=== PATIENT | female | born 1940 | race Caucasian/White ===

== ENCOUNTER → 2017-10-08 | Outpatient (CLI) | payer OTHER, MEDICARE | LOC: FIMAGING 14:54 | PROVIDERS: ATTEND Internal Medicine | DX: Z12.31 Encounter for screening mammogram for malignant neoplasm of breast (principal) | CPT/HCPCS: G0202 ==

== ENCOUNTER 2018-01-13 09:42 | Day surgery (SDC) | payer OTHER, MEDICARE ==
[2018-01-13] MEDS ORDERED: fentaNYL 100 MCG/2 ML INJ IVP ONE (09:46)
[2018-01-13] MEDS ORDERED: MIDAZOLAM 2 MG/2 ML VIAL IVP ONE (09:46)
[2018-01-13] MEDS ORDERED: ATROPINE SULFATE 1 MG/10 ML SYR IVP ONE (09:46)
[2018-01-13] MEDS ORDERED: NS 500 ML IV ONE (09:46)
--- NOTE | 2018-01-13 10:12 | CPEKG ---
Heart Rate: 101 RR Interval: 594 QRSD Interval: 74 QT Interval: 336 QTC Interval: 436 QRS [place]: 67 T Wave [place]: 49 EKG Severity - ABNORMAL ECG - EKG Impression: ATRIAL FIBRILLATION, V-RATE 81-117 EKG Impression: LOW VOLTAGE IN FRONTAL LEADS Electronically Signed By: Chuckie Hurtado 13-Jan-2018 16:05:28
[2018-01-13 10:30] LABS: INR 1.38 (0.83-1.16); PROTIME(PATIENT) 17.1 SEC (12.0-15.0)
[2018-01-13] MEDS ORDERED: PROPOFOL/EMULSION 500 MG/50 ML BOTTLE IV ONE (10:48)
--- NOTE | 2018-01-13 10:51 | PDANEPAE ---
ANE History of Present Illness 77 year old female w/ Atrial fibrillation presents for CV. ANE Past Medical History - Cardiovascular History Hx Hypertension: Yes Hx Arrhythmias: Yes Hx Chest Pain: No Hx Coronary Artery / Peripheral Vascular Disease: No Hx CHF / Valvular Disease: No Hx Palpitations: Yes Cardiovascular History Comment: Atrial fibrillation - Pulmonary History Hx COPD: No Hx Asthma/Reactive Airway Disease: No Hx Recent Upper Respiratory Infection: No Hx Oxygen in Use at Home: No Hx Sleep Apnea: No - Neurologic History Hx Cerebrovascular Accident: No Hx Seizures: No Hx Dementia: No Neurologic History Comment: Migraine headaches - Endocrine History Hx Diabetes: No Hypothyroid: No Hyperthyroid: No Obesity: no - Renal History Hx Renal Disorders: No - Liver History Hx Hepatic Disorders: No - Neurological & Psychiatric Hx Hx Neurological and Psychiatric Disorders: No - Congenital Disorder History Hx Congenital Disorders: No - GI History GERD: mild Hx Gastrointestinal Disorders: Yes Gastrointestinal History Comment: GERD but is status post Justin ANE Review of Systems Review of systems is: negative Review of Systems: - Exercise capacity Exercise capacity: >=4 METS ANE Patient History - Allergies Allergies/Adverse Reactions: amoxicillin Allergy (Verified 01/13/18 09:46) clindamycin Allergy (Verified 01/13/18 09:46) Penicillins Allergy (Verified 01/13/18 09:46) Sulfa (Sulfonamide Antibiotics) Allergy (Verified 01/13/18 09:46) - Home Medications Home medications: home medication list seen and reviewed Home Medications: Apixaban [Eliquis] 5 mg PO BID 01/13/18 [Last Taken 01/13/18] Calcium Carbonate [Tums 500MG (*)] 500 mg PO DAILY PRN 01/13/18 [Last Taken Unknown] Lisinopril [Zestril 10 mg (*)] 10 mg PO DAILY 01/13/18 [Last Taken 01/13/18] Metoprolol Succinate Xr [Toprol Xl 25 mg (*)] 25 mg PO HS 01/13/18 [Last Taken 01/12/18] Triamcinolone 0.5% [Triamcinolone 0.5% Cream (*)] 1 gonzalo TP BID 01/13/18 [Last Taken Unknown] - NPO status NPO Status: no food or drink >8 hours - Anes Hx Anes Hx: no prior problems - Smoking Hx Smoking Status: Never smoked Marijuana use: No - Family Anes Hx Family Anes Hx: neg - N/A ANE Labs/Vital Signs - Labs Result Diagrams: 01/13/18 10:10 - Vital Signs Vital Signs: reviewed preoperatively; see RN documention for details Height: 165.1 cm Weight: 67.585 kg ANE Physical Exam - Airway Neck exam: FROM Mallampati Score: Class 2 Mouth exam: normal dental/mouth exam - Pulmonary Pulmonary: no respiratory distress - Cardiovascular Cardiovascular: irregularly irregular - ASA Status ASA Status: III ANE Anesthesia Plan Anesthesia Plan: GA with mask Total IV Anesthesia: Yes
--- NOTE | 2018-01-13 11:04 | PDGENHP ---
History & Physical Chief Complaint: sob History of Present Illness: afib x 5 weeks sob see office form Pertinent Past, Social, Family History: see note Relevant Physical Exam: irreg irreg. neuro intact. no change Cardiorespiratory Assessment: ready for cv. all ? ans. refuses drew. knows risks and options . wishes to proceed.
--- NOTE | 2018-01-13 11:31 | CPEKG ---
Heart Rate: 55 RR Interval: 1091 P-R Interval: 192 QRSD Interval: 76 QT Interval: 444 QTC Interval: 425 P [place]: 54 QRS [place]: 45 T Wave [place]: 53 EKG Severity - OTHERWISE NORMAL ECG - EKG Impression: SINUS RHYTHM EKG Impression: LOW VOLTAGE IN FRONTAL LEADS Electronically Signed By: Chuckie Hurtado 13-Jan-2018 16:05:15
--- NOTE | 2018-01-13 11:58 | CPIP ---
[f rep st] INVASIVE CARDIAC PROCEDURE DIAGNOSIS: Atrial fibrillation. PROCEDURE: Cardioversion. INDICATIONS: The patient had a cardioversion done today because of atrial fibrillation. She has bee n on Eliquis for more than 6 weeks. She has never missed a dose and she refuses a transesophageal ec hocardiographic study because she has had major esophageal surgery. She understood the risk of stroke or higher without transesophageal echocardiogram, but she also unde rstands that being on the Eliquis for a long time helps lower her risk significantly, especially when she does not miss any doses and it has been more than 5 weeks. So, she wanted to proceed today without transesophageal echocardiogram. DESCRIPTION OF PROCEDURE: The patient received 360 watt seconds and converted from atrial fibrillati on to normal sinus rhythm with 1 shock. Anesthesia was present. The patient is totally awake and fi ne. There were no complications. CONDITION AT THE END OF STUDY: Excellent. The patient knows the importance of continuing her Eliquis. She knows there is a significant risk of stroke, and she is aware of that, and will follow very closely any neurologic changes, and if she sh ould develop any, to call 911 and come right back to the hospital. /[id number]/MODL
--- NOTE | 2018-01-13 12:33 | POSTANESTH ---
Post Anesthetic Evaluation Cardiovascular Status: Normal, Stable, Similar to Pre-Op Cond Respiratory Status: Normal, Stable, Similar to Pre-op Cond. Level of Consciousness/Mental Status: Can Participate in Eval, Alert and Oriented Pain Control: Adequate, Prn Tx Ordered Nausea/Vomiting Control: Adequate, Prn Tx Ordered Complications Possibly Related to Anesthesia: None Noted
== END 2018-01-13 12:55 | disposition home or self-care (01) ==
LOC: FCATH 09:42
PROVIDERS: ATTEND Internal Medicine
PROC: 5A2204Z Restoration of Cardiac Rhythm, Single (ICD-10-PCS; principal; 2018-01-13)
DX: I48.91 Unspecified atrial fibrillation (principal); I10 Essential (primary) hypertension; Z79.01 Long term (current) use of anticoagulants; Z88.0 Allergy status to penicillin; Z88.2 Allergy status to sulfonamides
CPT/HCPCS: J0461; J2704

== ENCOUNTER → 2018-09-30 | Outpatient (CLI) | payer OTHER, MEDICARE ==
[~2018-09-30] MED LIST: IOPAMIDOL (ISOVUE-300) 100 ML BTL ONE
== END ==
LOC: FIMAGING 08:42
PROVIDERS: ATTEND Family Medicine
DX: N28.89 Other specified disorders of kidney and ureter (principal); K76.89 Other specified diseases of liver; Z87.19 Personal history of other diseases of the digestive system
CPT/HCPCS: 74177; Q9967; 82565-PO

== ENCOUNTER 2018-10-05 10:13 | Day surgery (SDC) | payer OTHER, MEDICARE ==
[2018-10-05] MEDS ORDERED: ALTEPLASE 2 MG VIAL IVP PRN (10:15)
[2018-10-05] MEDS ORDERED: MEPERIDINE 25 MG/ML SYR IVP PRN (10:15)
[2018-10-05] MEDS ORDERED: fentaNYL 100 MCG/2 ML INJ IVP PRN (10:15)
[2018-10-05] MEDS ORDERED: NS 1,000 ML IV SCH (10:15)
[2018-10-05] MEDS ORDERED: GLUCAGON HCL 1 MG VIAL IVP PRN (10:15)
[2018-10-05] MEDS ORDERED: NALOXONE HCL 0.4 MG/ML INJ IVP PRN (10:15)
[2018-10-05] MEDS ORDERED: FLUMAZENIL 0.5 MG/5 ML MDV IVP PRN (10:15)
[2018-10-05] MEDS ORDERED: PROTAMINE SULFATE 50 MG/5 ML VIAL IVP PRN (10:15)
[2018-10-05] MEDS ORDERED: HEPARIN 10,000 UNIT/10 ML MDV (1,000 UNIT/ML) IVP PRN (10:15)
[2018-10-05] MEDS ORDERED: MIDAZOLAM 2 MG/2 ML VIAL IVP PRN (10:15)
[2018-10-05 11:16] LABS: INR 1.05 (0.83-1.16); PROTIME(PATIENT) 13.9 SEC (12.0-15.0)
[2018-10-05] MEDS ORDERED: LIDOCAINE 1% 300 MG/30 ML SDV ONE (11:46)
--- NOTE | 2018-10-05 12:16 | PDPROPOC ---
Sedation Plan of Care Sedation Plan of Care: vital signs stable, mental status noted, patient educated of risks, benefits, alternatives, patient can tolerate sedation ASA Classification: ASA 2 Planned drugs: fentanyl, midazolam Mallampati Score: Class 1 Mallampati Reference Image: Patient passed 3-3-2 rule?: Yes
--- NOTE | 2018-10-05 12:18 | PDGENHP ---
History & Physical Chief Complaint: incidentally found masses in abd History of Present Illness: abdominal pain, leukocytosis, masses found on CT scan. tissue dx needed. Pertinent Past, Social, Family History: non smoker; a fib, chronic fatigue, HTN. Relevant Physical Exam: in no distress Cardiorespiratory Assessment: rrr, cta
[2018-10-05] MEDS ORDERED: ONDANSETRON 4 MG/2 ML VIAL IVP PRN (13:32)
[2018-10-05] MEDS ORDERED: ACETAMINOPHEN 325 MG TAB PO PRN (13:32)
--- NOTE | 2018-10-05 13:33 | PDRADPN ---
Radiology Procedure Note Date of Procedure: 10/05/18 Radiologist: Doreen Loya Anesthesia: IV Sedation Pre-op Diagnosis: abd masses Post-op Diagnosis: same Indication: need tissue diagnosis Procedure: CT guided RT mass bx Inf/Abcess present in the surg proc area at time of surgery?: No Specimen(s): cores sent to path.
[2018-10-05 14:01] VITALS: BP 123/76
== END 2018-10-05 14:20 | disposition home or self-care (01) ==
LOC: FIMAGING 10:13
PROVIDERS: ATTEND Surgery
PROC: 0WBH3ZX Excision of Retroperitoneum, Percutaneous Approach, Diagnostic (ICD-10-PCS; principal; 2018-10-05 13:10)
DX: C79.89 Secondary malignant neoplasm of other specified sites (principal); D72.829 Elevated white blood cell count, unspecified; I48.91 Unspecified atrial fibrillation; R53.82 Chronic fatigue, unspecified; I10 Essential (primary) hypertension
CPT/HCPCS: 88184-90; 88185-91; J2250; J2310; J3010

== ENCOUNTER 2018-10-29 11:03 | Inpatient (IN) | payer OTHER, MEDICARE ==
--- NOTE | 2018-10-28 09:41 | GHP ---
DATE OF ADMISSION: 10/29/2018 CHIEF COMPLAINT: Retroperitoneal mass. HISTORY OF PRESENT ILLNESS: This is a 78-year-old female who started experiencing lower abdominal pain and feelings of being bloated over the last 4 weeks. She underwent a CT scan that revealed a right retroperitoneal 36 x 34 mm mass inferior to the right kidney and a second right-sided pelvis 32 x 32 mm mass suspicious for metastases, unknown primary. She underwent a biopsy and the pathology report showed a poorly differentiated metastatic cancer, possibly consistent with renal primary. The masses have continued to enlarge on the CT and PET over a short period of time. REVIEW OF SYSTEMS: A 10-point review of systems was performed and is negative, aside from what is in the HPI. PAST MEDICAL HISTORY: Atrial fibrillation, chronic fatigue, leiomyoma of uterus , hypertension, migraines, osteoarthritis. PAST SURGICAL HISTORY: Appendectomy, cardioversion, fundoplication, hysterectomy. MEDICATIONS: CoQ10, Eliquis 5 mg, estradiol transdermal patch, Imitrex p.r.n., lisinopril 10 mg, loratadine 10 mg, aspirin 81 mg, metoprolol 50 mg, omega-3, vitamin D3 3000 international units. ALLERGIES: Amoxicillin, sulfa, clindamycin, penicillin. FAMILY MEDICAL HISTORY: Stomach cancer, type 2 diabetes, congestive heart failure, rheumatic heart disease. SOCIAL HISTORY: The patient is a nonsmoker and consumes 1 glass of wine per day. PHYSICAL EXAM: GENERAL: Well appearing, well dressed, in no acute distress. HEENT: Normocephalic, atraumatic, pupils are equal and round. No scleral icterus. No gross hearing deficits. Mucous membranes are moist. CARDIAC: Regular rate and rhythm. No clicks, murmurs, or rubs. CHEST: Clear to auscultation bilaterally. No crackles, rales, or rhonchi. ABDOMEN: Soft, nondistended, tender to palpation in the right lower quadrant. SKIN: Warm and dry. No rashes or jaundice. MUSCULOSKELETAL: Moves all extremities equally. NEUROLOGIC: Alert and oriented x3. PSYCHIATRIC: Appropriate mood and affect. IMPRESSION/PLAN: This is a patient who has a right retroperitoneal mass, as well as a right pelvic mass that appeared to be emerging rather rapidly on imaging studies. She underwent a PET-CT that revealed metabolically active masses involving the left lung apex, right mid abdomen, and right pelvis. Her cancer could be primary renal or lung. She will need adjuvant chemotherapy. We will plan on placing a left chest port. We discussed all risks and options. Risks of surgery, include, but are not limited to infection, bleeding, pneumothorax, heart attack, and . Patient understands and wishes to proceed. She knows she needs to be off her Eliquis at least 24 hours prior to surgery, as well as her aspirin 3 days prior to surgery. She will also need cardiac clearance. The patient understands and wishes to proceed with plan. /[id number]/MODL MTDD
[~2018-10-29 11:03] MED LIST changes: +BUPIVACAINE 0.5% 30 ML SDV ONE; -IOPAMIDOL (ISOVUE-300) 100 ML BTL ONE; +VANCOMYCIN HCL/NORMAL SALINE 250 ML IV ONE; +VANCOMYCIN PHARMACY TO DOSE MISC ONE
[2018-10-29] MEDS ORDERED: LR 1,000 ML IV ONE (11:26)
[2018-10-29] MEDS ORDERED: LIDOCAINE 1% 2 ML INJ ID PRN (11:26)
[2018-10-29] MEDS ORDERED: LABETALOL HCL 5 MG/ML 20 ML MDV IVP ONE (13:10)
[2018-10-29] MEDS ORDERED: CALCIUM CARBONATE 500 MG CHEWABLE TAB PO PRN (14:47)
[2018-10-29] MEDS ORDERED: CYANO/VITAMIN B12 1000 MCG/ML VIAL IM SCH (15:00)
[2018-10-29] MEDS ORDERED: METOPROLOL SUCCINATE XR 50 MG TAB PO SCH (15:00)
[2018-10-29] MEDS ORDERED: DEXAMETHASONE 4 MG TAB PO SCH (15:00)
[2018-10-29] MEDS ORDERED: ONDANSETRON DISINTEGRATING 4 MG TAB PO PRN (15:06)
[2018-10-29] MEDS ORDERED: ONDANSETRON 4 MG/2 ML VIAL IVP PRN (15:06)
[2018-10-29 16:00] LABS: PLATELET COUNT 266 10^3/uL (150-400)
--- NOTE | 2018-10-29 16:00 | GHP ---
DATE OF ADMISSION: 10/29/2018 Ms. Victoria is a 78-year-old female with a history of atrial fibrillation and recent diagnosis of large retroperitoneal masses that are felt to be metastatic renal cancer. She presents today for port placement, but she was found to be in rapid atrial fibrillation and so zachary flores is being admitted to the hospital for further evaluation. When I speak with her, she notes that zachary flores has not felt great over the last couple days. She has had some subjective chills, a cough without sputum. No fevers. No diarrhea. She has been eating and drinking okay. She has not necessarily jacobsen d palpitations. Regarding atrial fibrillation, she was converted in December. She is on Eliquis, but it has been held r ecently. Reviewing the note, she was seen by Dr. William Maldonado in September and noted to be in atrial fibrillation at that time. No urgency, frequency, or dysuria. REVIEW OF SYSTEMS: Complete 10-point review of systems conducted and negative except as noted in the HPI. PAST MEDICAL HISTORY: 1. Retroperitoneal mass, likely renal cell carcinoma that is metastatic. 2. Atrial fibrillation. 3. Hypertension. ALLERGIES: Amoxicillin, clinda, penicillin, sulfa. HOME MEDICATIONS: Metoprolol 50 daily, Eliquis which has been on hold, sumatriptan, calcium carbonat e, B12, dexamethasone p.r.n., estradiol, folate, lisinopril. SOCIAL HISTORY: She is a retired computer executive. Nonsmoker, nondrinker. FAMILY HISTORY: Parents . PHYSICAL EXAMINATION: PRESENTING VITALS: Temperature 36.7, blood pressure 97/74, pulse 144, breathi ng 16 times a minute, 90% on room air. GENERAL: No acute distress. HEENT: Sclerae are anicteric. Oropharynx is clear. Mucous membranes are moist. NECK: Supple. No lymphadenopathy or JVD. LUNGS : Clear to auscultation bilaterally. HEART: S1, S2. Tachycardic. Irregularly irregular. ABDOMEN : Soft, nontender, nondistended. LOWER EXTREMITIES: No edema. Calves nontender. SKIN: Without r mario. NEUROLOGIC: Nonfocal. LABORATORY DATA: Sodium 127, potassium 5.1, chloride 94, bicarb 22, BUN 13, creatinine 0.7. She had a CBC yesterday showing a white count of 38.5 with a hemoglobin of 11, hematocrit of 34.5, and plate lets of 256,000. The white count has been creeping up. Two days ago, her sodium was 129. She has m odestly elevated LFTs, elevated carcinoembryonic antigen. There is no imaging. Review of telemetry revealed atrial fibrillation with rapid ventricular rate. I discussed the case with Dr. Shannon Vora and Dr. Cameron Hunter. ASSESSMENT/PLAN: A 78-year-old female admitted for port, found to be in rapid atrial fibrillation. 1. Rapid atrial fibrillation. This is a contraindication to going to surgery. Needs better rate co ntrol. There was discussion of cardioversion; however, [facility] so this will be held for a bit of time. 2. Leukocytosis with chills. This is concerning for potential source of infection. We will draw so me blood cultures and do a chest x-ray. She does not have urinary symptoms and has a soft belly as w ell. No evidence of a skin infection. We will follow from there. It is possible that her leukocyto sis is simply secondary to cancer; however, that is a diagnosis of exclusion. 3. Hypertension. We will continue her lisinopril. 4. Hyponatremia. This is a new finding. She appears to be poor solute intake. We will check urine osms and follow. 5. Prophylaxis sequential compression devices. DISPOSITION: Inpatient status. /[id number]/MODL
[2018-10-29] MEDS: METOPROLOL TARTRATE 25 MG TAB PO SCH ×2 (16:08→22:24)
--- NOTE | 2018-10-29 16:15 | PDMN ---
Medical Necessity Medical necessity: Pt meets INPT criteria per MD as of 10/29/18 and MCG Systemic or Infectious Condition GRG (est. LOS >2 MN for eval/mgmt of rapid afib, recent diagnosis of large retroperitoneal masses, leukocytosis with chills, hyponatremia, htn).
--- NOTE | 2018-10-30 03:53 | GCON ---
CARDIOLOGY CONSULT DATE OF CONSULTATION: 10/29/2018 REFERRING PHYSICIAN: Dr. Hunter PRIMARY ONCOLOGIST: Rupesh Pinedo MD CHIEF COMPLAINT: Atrial fibrillation. HISTORY OF PRESENT ILLNESS: The patient is a 78-year-old female with a history of paroxysmal atrial fibrillation and hypertension. She has no other known cardiovascular disease. She was previously se en by Dr. Maldonado at [facility]. Unfortunately, she has had a recent diagnosis of right retroperitoneal mass with evidence of metastat ic disease. It is unclear at this point whether this is a renal or lung primary. She was admitted t [facility] for port placement as she is scheduled to start chemotherapy on Friday; however, in the preopera tive area, she was noted to be in atrial fibrillation with rapid ventricular response, and therefore her case was canceled. She was admitted to Hospital Medicine for further evaluation and management. The patient reports exertional dyspnea and overall fatigue. She has not had angina. No syncope. Sh e does note palpitations. No lower extremity edema. Up until 24 hours ago, she was taking Eliquis for her atrial fibrillation. REVIEW OF SYSTEMS: 10-point review of systems is performed, is negative, except that which is outlin ed in the History of Present Illness. ALLERGIES: Amoxicillin, clindamycin, penicillin, sulfa. PAST MEDICAL HISTORY: 1. Atrial fibrillation with a history of cardioversion in December 2017. 2. Newly diagnosed malignancy. 3. History of uterine leiomyoma. 4. Osteoarthritis. 5. Migraine headaches. 6. Hypertension. SURGICAL HISTORY: Appendectomy, fundoplication, hysterectomy. OUTPATIENT MEDICATIONS: Toprol 50 mg daily, last dose was yesterday evening; Imitrex nasal spray; li sinopril 10 mg daily; folic acid; transdermal estrogen; Decadron; vitamin B12; calcium carbonate; and Eliquis 5 mg twice daily. SOCIAL HISTORY: The patient drinks alcohol in moderation and does not smoke. She is . FAMILY HISTORY: Not applicable to the current case. PHYSICAL EXAM: VITAL SIGNS: Blood pressure 97/74, heart rate 141, oxygen saturation 90% on room air . She is afebrile. Respiratory rate is 16. GENERAL: Fairly well-appearing elderly female in no ac bg distress. HEENT: Sclerae free of jaundice. Mucous membranes are moist. Normal dentition. Nor mocephalic, atraumatic. CARDIOVASCULAR: JVP is less than 10. Irregularly irregular rapid rhythm wi thout rub, gallop, or S3. LUNGS: Clear bilaterally without wheezes, rhonchi, or rales. ABDOMEN: G rossly normal. EXTREMITIES: Warm and without edema. 2+ distal pulses bilaterally. NEURO: Alert a nd oriented x3 without gross focal neurological deficits. PSYCHIATRIC: Appropriate mood and affect. LABORATORY DATA: CBC dated 10/27/2018, shows a white count of 38.35, hematocrit 34.5, and platelets of 256. INR 1.1 in September. Sodium 127, potassium 5.1, chloride 94, bicarb 22, BUN 13, creatinine 0.7, glucose of 95. ALT and AST are 61 and 94, respectively. Alk phos is 430. CEA 3.5. EKG pending. Nuclear stress test in our office 2012 showed normal myocardial perfusion and normal ejection fractio n. Echocardiogram in 2013 showed normal left ventricular ejection fraction and mild mitral regurgitation . ASSESSMENT AND PLAN: 78-year-old female with newly diagnosed metastatic malignancy, now needs port p lacement to start chemotherapy. Currently in atrial fibrillation with rapid ventricular response. B lood pressure is slightly low, but she is not symptomatic related to this. She does not appear to be in heart failure or having cardiac ischemia. 1. Atrial fibrillation: Will intensify rate control by increasing her metoprolol, change in formula tion to metoprolol tartrate 25 mg 3 times daily. At this point, would not proceed with cardioversion as she will not be able to be on uninterrupted anticoagulation due to upcoming port placement. Estrella vymega, given her systemic illness, I do not think she would necessarily stay in sinus rhythm post c ardioversion. Certainly if she becomes hemodynamically stable, we can perform this at any time. Wou ld resume Eliquis once she is through with her procedures and deemed safe both from a surgical and on cological standpoint. 2. Metastatic malignancy: She is followed by Dr. Pinedo. Plan is to start chemotherapy on Friday. 3. Elevated white count: It appears that she has been getting Decadron in the outpatient setting; h owever, ongoing workup by Dr. Pedroza for infectious etiology. Chest x-ray and blood cultures pending . 4. Hypertension: Currently slightly hypotensive. Follow closely. 5. Hyponatremia: Unclear etiology. Per Hospital Medicine. 6. Preoperative evaluation: At this point, her rate control does need to be better prior to general anesthesia and port placement; however, understandably, we do not want to delay her procedure too lo ng given the need for chemotherapy. I do not see an indication for stress testing at this time. Wou ld hold off on echocardiogram until her heart rate is improved. Thank you for allowing me to participate in the patient's care. Will follow with you. /[id number]/MODL
[2018-10-30 04:57] LABS: PLATELET COUNT 282 10^3/uL (150-400)
[2018-10-30] MEDS ORDERED: VANCOMYCIN HCL/NORMAL SALINE 250 ML IV ONE ×2 (08:00→11:30)
[2018-10-30] MEDS: METOPROLOL TARTRATE 25 MG TAB PO SCH ×3 (08:02→21:48)
[2018-10-30] MEDS: LISINOPRIL 10 MG TAB PO SCH (08:02)
[2018-10-30] MEDS: FOLIC ACID 1 MG TAB PO SCH (08:02)
--- NOTE | 2018-10-30 09:04 | SOAPPROG ---
SOAP Progress Note Assessment/Plan: Assessment: 78 y/o F with metastatic CA, unknown primary. Was supposed to undergo port placement yesterday, but upon arrival to preop, she was noted to be in A-fib. Scheduled to start chemo on Friday. Metoprolol tartrate tid per cardiology. Still with rapid rate this am. Eliquis currently being held for pending surgery. Leukocytosis. Possibly due to recent steroids? Pt being worked up for possible infectious source. S: Continues to feel weak. Would like to proceed with surgery. O: Alert irregularly irregular rate ctab, no increased Wob Abdomen soft, nontender Plan: Proceed with port placement. Can be done under sedation or local if needed. 10/30/18 08:59 Objective: Vital Signs Temp Pulse Resp BP Pulse Ox 36.6 C 110 H 17 104/58 L 95 10/30/18 07:28 10/30/18 07:28 10/30/18 07:28 10/30/18 07:28 10/30/18 07:28 Laboratory Results 10/30/18 03:35 10/30/18 03:35 10/29/18 10/30/18 10/31/18 05:59 05:59 05:59 Intake Total 250 Output Total 500 Balance -250 ICD10 Worksheet Patient Problems: Problems Problem Status Onset Atrial fibrillation Acute - ICD10 Problem Qualifiers (1) Atrial fibrillation
[2018-10-30] MEDS ORDERED: DIGOXIN 500 MCG/2 ML AMP IVP ONE (09:11)
[2018-10-30] MEDS ORDERED: LR 1,000 ML IV ONE (10:39)
--- NOTE | 2018-10-30 10:58 | PDCARPN ---
Cardiology Progress Note Assessment/Plan: Assessment/plan: 78-year-old female with paroxysmal atrial fibrillation and hypertension. Recently diagnosed metastatic carcinoma with as yet unknown primary. She does have lung masses and retroperitoneal mass. Admitted from preoperative area yesterday with atrial fibrillation rapid ventricular response. 1. Atrial fibrillation: Rate control improved with increased oral metoprolol and a single dose of digoxin this morning. No evidence of cardiac ischemia or heart failure. Blood pressure stable. She is off anticoagulation due to the need for port placement. Dr. Bryant will discuss with Dr. Pinedo strategy for long-term anticoagulation given her metastatic carcinoma in atrial fibrillation. CHADS2 Vasc score is 3, but her thromboembolic risk is likely higher given her cancer. Would not cardiovert at this point as I do not think she will remain in sinus rhythm and it is also not clear if she will be able to have uninterrupted anticoagulation therapy over the next several weeks. 2. Metastatic carcinoma: Port placement today with Dr. Hunter. Chemotherapy to start on Friday. Her primary oncologist is Dr. Pinedo. 3. Elevated white count and anemia: May be related to her malignancy. Blood cultures have been negative. No infiltrate on chest x-ray. Afebrile. 4. Hypertension. Currently well controlled. She is on metoprolol. Lisinopril is on hold at the present moment. 5. Hyponatremia: May be related to SIADH from her pulmonary process. 10/30/18 12:00 Subjective: Bobbi denies dyspnea or chest pain. Reviewed/Discussed With: multidisciplinary team (Dr. Bryant. Dr. Hunter) Objective: Vital Signs (8 Hrs) Temp Pulse Resp BP Pulse Ox 10/30/18 09:54 124 H 10/30/18 07:28 36.6 C 110 H 17 104/58 L 95 10/30/18 03:45 36.6 C 112 H 16 101/63 94 Intake/Output (24 Hrs) 10/29/18 10/30/18 10/31/18 05:59 05:59 05:59 Intake Total 250 Output Total 500 700 Balance -250 -700 Intake: Oral (ml) 250 IV Intake (ml) 0 Output: Urine (ml) 500 700 Toilet 500 700 Other: Weight 64.41 kg 62.7 kg Number of Voids Toilet 1 1 No acute distress. Irregular regular rhythm. No murmur. No S3. Lungs clear bilaterally without wheeze rhonchi rales No lower extremity edema Alert and oriented x3 without gross focal neurologic deficits. Appropriate mood and affect. Chest x-ray reviewed: Left upper lobe mass. Small left pleural effusion. Result Diagrams: 10/30/18 03:35 10/30/18 03:35 EKG: Atrial fibrillation with controlled ventricular response. Telemetry: Atrial fibrillation with controlled ventricular response ICD10 Worksheet Patient Problems: Problems Problem Status Onset Atrial fibrillation Acute
--- NOTE | 2018-10-30 12:56 | PDANEPAE ---
ANE Past Medical History - Cardiovascular History Hx Hypertension: Yes Hx Arrhythmias: Yes Hx Chest Pain: No Hx Coronary Artery / Peripheral Vascular Disease: No Hx CHF / Valvular Disease: No Hx Palpitations: Yes Cardiovascular History Comment: Atrial fibrillation - Pulmonary History Hx COPD: No Hx Asthma/Reactive Airway Disease: No Hx Recent Upper Respiratory Infection: No Hx Oxygen in Use at Home: No Hx Sleep Apnea: No Sleep Apnea Screening Result - Last Documented: Negative Pulmonary History Comment: LUNG MASS - Neurologic History Hx Cerebrovascular Accident: No Hx Seizures: No Hx Dementia: No Neurologic History Comment: Migraine headaches - Endocrine History Hx Diabetes: No Obesity: no - Renal History Hx Renal Disorders: No - Liver History Hx Hepatic Disorders: No - Neurological & Psychiatric Hx Hx Neurological and Psychiatric Disorders: No - Cancer History Hx Cancer: No Cancer History Comment: 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 hysterectomy. appendectomy ANE Review of Systems Review of Systems: - Exercise capacity METS (RN): 3 METS ANE Patient History - Allergies Allergies/Adverse Reactions: amoxicillin Allergy (Verified 10/05/18 11:33) clindamycin Allergy (Verified 10/05/18 11:33) Penicillins Allergy (Verified 10/05/18 11:33) Sulfa (Sulfonamide Antibiotics) Allergy (Verified 10/05/18 11:33) - Home Medications Home medications: home medication list seen and reviewed Home Medications: Apixaban [Eliquis] 5 mg PO BID 01/13/18 [Last Taken 10/28/18 00:00] Calcium Carbonate [Tums 500MG (*)] 500 mg PO DAILY PRN 01/13/18 [Last Taken ] Lisinopril [Zestril 10 mg (*)] 10 mg PO DAILY 01/13/18 [Last Taken 10/28/18] Cyanocobalamin [Vitamin B12 1000MCG/ML (*)] 1,000 mcg IM Q30D 10/29/18 [Last Taken 10/26/18] Dexamethasone [Decadron 4 MG (*)] 4 mg PO AD 10/29/18 [Last Taken Unknown] Estradiol [Vivelle-Dot 0.05MG (*)] 0.05 mg TD MOTLEY 10/29/18 [Last Taken 10/25/18] Folic Acid [Folic Acid 1 MG (*)] 1 mg PO DAILY 10/29/18 [Last Taken 10/28/18] Metoprolol Succinate Xr [Toprol Xl 50 mg (*)] 50 mg PO DAILY 10/29/18 [Last Taken Unknown] SUMAtriptan [Imitrex Nasal 20 mg [place] (RX)] 20 mg NASAL ONCE PRN 10/29/18 [ Last Taken Unknown] - NPO status NPO Status: no food or drink >8 hours NPO Since - Liquids (Date): 10/29/18 NPO Since - Liquids (Time): 00:00 NPO Since - Solids (Date): 10/29/18 NPO Since - Solids (Time): 00:00 - Anes Hx Anes Hx: no prior problems - Smoking Hx Smoking Status: Never smoked ANE Labs/Vital Signs - Labs Result Diagrams: 10/30/18 03:35 10/30/18 03:35 - Vital Signs Blood Pressure: 115/63 Heart Rate: 98 Respiratory Rate: 20 O2 Sat (%): 92 Height: 165.1 cm Weight: 62.7 kg ANE Physical Exam - Airway Neck exam: FROM Mallampati Score: Class 2 Mouth exam: normal dental/mouth exam - Pulmonary Pulmonary: no respiratory distress, no rales or rhonchi, clear to auscultation - Cardiovascular Cardiovascular: regular rate and rhythym, no murmur, rub, or gallop - ASA Status ASA Status: III ANE Anesthesia Plan Anesthesia Plan: MAC
[2018-10-30] MEDS ORDERED: PROPOFOL 200 MG/20 ML VIAL ONE ×3 (12:58→13:35)
[2018-10-30] MEDS ORDERED: fentaNYL 100 MCG/2 ML INJ ONE (12:58)
--- NOTE | 2018-10-30 13:07 | HOSPPROG ---
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 However will need adequate heart rate control for beginning chemotherapy which does include some toxic medications. I reviewed today with Dr. Shannon Vora and will review with Dr. oKri Perry as well. PLANS: * Port placement today * I have given 1 dose of digoxin for rate control through her procedure * Continue rate control medicines with primarily beta-blockers at this time, may need bout calcium toney as well * I will review with PATRICIA Pinedo anticoagulation, as her carcinoma may dictate that Lovenox would be an appropriate long-term approach SUBJECTIVE: Feels better today No shortness Of breath or chest discomfort no fevers OBJECTIVE Vitals reviewed: Heart rate notably better than yesterday but still in the 100- 110 range occasionally 120, blood pressures respiration temp all normal Track Grinder, my review: Rapid AFib improved since yesterday Exam: alert oriented skin warm dry color ok resps not labored lungs clear BSs heart mildly rapid and irregular abd soft nondistended nontender, bowel sounds present limbs warm, trace by pedal edema iv site ok Lab data: White count better today at 32,000 rest of CBC stable Sodium improved at 131 Today, otherwise stable basic met panel Urine osmolality was low Objective: Vital Signs Temp Pulse Resp BP Pulse Ox 36.6 C 98 20 115/63 92 10/30/18 12:54 10/30/18 12:56 10/30/18 12:56 10/30/18 12:56 10/30/18 12:56 Laboratory Results 10/30/18 03:35 10/30/18 03:35 10/29/18 10/30/18 10/31/18 06:59 06:59 06:59 Intake Total 250 Output Total 500 700 Balance -250 -700 - Time Spent With Patient Time Spent with Patient: greater than 35 minutes Time Spent with Patient: Greater than 35 minutes spent on this patients care, greater than 50% of time spent counseling, educating, and coordinating care regarding the above mentioned plan. ICD10 Worksheet Patient Problems: Problems Problem Status Onset Atrial fibrillation Acute
[2018-10-30] MEDS ORDERED: LIDOCAINE 1% 300 MG/30 ML SDV ONE (13:11)
[2018-10-30] MEDS ORDERED: NALOXONE HCL 0.4 MG/ML INJ IVP PRN (13:50)
[2018-10-30] MEDS ORDERED: ONDANSETRON 4 MG/2 ML VIAL IVP PRN (13:50)
[2018-10-30] MEDS ORDERED: fentaNYL 100 MCG/2 ML INJ IVP PRN (13:50)
[2018-10-30] MEDS ORDERED: ACETAMINOPHEN 500 MG TAB PO PRN (13:50)
[2018-10-30] MEDS ORDERED: PROMETHAZINE HCL 25 MG/ML INJ IVP PRN (13:50)
--- NOTE | 2018-10-30 13:53 | ASMTCMCOM ---
CM Note CM Note Notes: 10/30/2018 Case Management Note Reviewed chart. Discussed during rounds. Pt admitted for rapid afib,hyponatremia, retroperitoneal cancer and HTN. There are no therapy evals ordered at this time. Pt had a subclavian port placed today. Discharge needs are unclear at this time. Case Management d/c poc: to be determined Case Management to follow. Date Signed: 10/30/2018 01:52 PM Electronically Signed By:Katie Jones RN
[2018-10-30] MEDS ORDERED: BACITRACIN ZINC 0.5 OZ OINTTUBE TP ONE (13:59)
--- NOTE | 2018-10-30 14:14 | POSTANESTH ---
Post Anesthetic Evaluation Cardiovascular Status: Similar to Pre-Op Cond Respiratory Status: Normal, Stable, Similar to Pre-op Cond. Level of Consciousness/Mental Status: Can Participate in Eval, Alert and Oriented Pain Control: Adequate, Prn Tx Ordered Nausea/Vomiting Control: Adequate, Prn Tx Ordered Complications Possibly Related to Anesthesia: None Noted
[2018-10-30] MEDS ORDERED: HEPARIN 1000 UNIT/1 ML MDV ONE (14:53)
--- NOTE | 2018-10-30 15:48 | ECHO ---
[email or web address] [address] [address] Main: [phone] Fax: Transthoracic Echocardiogram Name: SHEILA DEY MR#: [id number] Study Date: 10/30/2018 Study Time: 02:38 PM Date of : 1940 Age: 78 year(s) Height: 165.1 cm (65 in.) Weight: 62.6 kg (138 lb.) BSA: 1.69 m2 Gender: Female Examination: Echo Indication: New onset Atrial fibrillation Image Quality: Contrast: Requested by: Shannon Vora BP: 116 mmHg/71 mmHg Heart Rate: Rhythm: Atrial fibrillation Indication: New onset Atrial fibrillation Procedure Staff Radiation Therapist: Juan Kellogg RDCS Reading Physician: Josiah Waller MD Requesting Provider: Conclusions: No pericardial effusion. Normal left ventricular chamber size. Ejection fraction 66%. Mild biatrial enlargement. Mild tricuspid regurgitation with right ventricular systolic pressure of 46 mm of mercury. Measurements: Chambers Valvular Assessment AV/MV Valvular Assessment TV/PV Normal Normal Normal Name Value Range Name Value Range Name Value Range Ao An (MM): 2.9 cm (2.2 cm-3.7 AV Vmax: 1.33 m/s (1 m/s-1.7 TR Vmax: 3.22 mm/s ( - ) cm) m/s) TR PGmax: 41 mmHg ( - ) IVSd (2D): 0.8 cm (0.6 cm-1.1 AV maxP mmHg ( - ) syst. PAP: 46 mmHg ( - ) cm) LVOT Vmax: 0.99 m/s (0.7 m/s-1.1 PV Vmax: 1.10 m/s (0.6 m/s-0.9 LVDd (2D): 4.0 cm (3.9 cm-5.3 m/s) m/s) cm) MV E Vmax: 1.13 m/s ( - ) PV PGmax: 5 mmHg ( - ) LVDs (2D): 2.6 cm (2.1 cm-4 cm) LVPWd (2D): 0.9 cm ( - ) LVEF (2D): 66 (>=54 %) Continued Measurements: Chambers Valvular Assessment AV/MV Valvular Assessment TV/PV Name Value Name Value Name Value LADs: 4.1 cm MV E' Septal: 0.10 m/s CVP (est.): 5 mmHg LADs Lon.0 cm MV E/E' Septal: 11.70 LA Area: 21.7 cm2 MV E/E' Lateral: 9.70 LA Volume: 63 ml LA Volume Index: 37.3 ml/m2 Patient: SHEILA DEY Study Date: 10/30/2018 Page 1 of 2 02:38 PM Findings: Left Ventricle: Normal size left ventricle. No LV hypertrophy. Normal global systolic LV function. EF is 66 %. No regional wall motion abnormality. Right Ventricle: Normal size right ventricle. Normal RV function. Left Atrium: The left atrium is mildly dilated. Right Atrium: The right atrium is mildly dilated. A catheter is discernible in right atrium. Mitral Valve: Mild mitral valve leaflet calcification is present. Aortic Valve: The aortic valve is tri-leaflet. Mild aortic cusp calcification is noted. Tricuspid Valve: The tricuspid valve appears normal. Mild tricuspid regurgitation is present. The pulmonary artery pressure is mildly increased. Pulmonic Valve: The pulmonic valve is normal in appearance and function. Aorta: The aorta is normal. Pericardium: No pericardial effusion. Exam Comments: The rhythm is atrial fibrillation.. (No Signature Object) Patient: SHELIA DEY Study Date: 10/30/2018 Page 2 of 2 02:38 PM [id number]
[2018-10-30] MEDS: ACETAMINOPHEN 325 MG TAB PO PRN (19:03)
[2018-10-31] MEDS: ACETAMINOPHEN 325 MG TAB PO PRN ×2 (03:37→08:15)
[2018-10-31] MEDS: LISINOPRIL 10 MG TAB PO SCH (08:14)
[2018-10-31] MEDS: METOPROLOL TARTRATE 25 MG TAB PO SCH (08:15)
[2018-10-31] MEDS: FOLIC ACID 1 MG TAB PO SCH (08:16)
--- NOTE | 2018-10-31 08:50 | PDCARPN ---
Cardiology Progress Note Assessment/Plan: Assessment: 78-year-old female with paroxysmal atrial fibrillation and hypertension. Recently diagnosed metastatic carcinoma with as yet unknown primary. She does have lung masses and retroperitoneal mass. Admitted from preoperative area yesterday with atrial fibrillation rapid ventricular response. 1. Atrial fibrillation - adequate rate control. Continue current dose of metoprolol. [id number] Score is 4, she should resume Eliquis/Lovenox for anticoagulation unless there is contraindication from the oncology standpoint. I have discussed this with Dr. Sharath Bryant who will discuss further with Dr. Pinedo who is her oncologist and start anticoagulation today. 2. Hypertension- well controlled 3. Metastatic carcinoma status post port placement and chemotherapy to start on Friday 4. Hyponatremia Patient can be discharged home from the Cardiology standpoint. 10/31/18 08:51 Subjective: Feels well, offers no complaints. Is anxious to go home. Time Spent with Patient: greater than 25 minutes Time Spent with Patient: Greater than 25 minutes spent on this patients care, greater than 50% of time spent counseling, educating, and coordinating care regarding the above mentioned plan. Objective: Vital Signs (8 Hrs) Temp Pulse Resp BP Pulse Ox 10/31/18 08:15 104 H 10/31/18 08:14 128/77 H 10/31/18 07:36 36.6 C 97 18 129/77 H 99 10/31/18 03:25 37.1 C 91 20 116/47 L 94 Intake/Output (24 Hrs) 10/29/18 10/30/18 10/31/18 11:59 11:59 11:59 Intake Total 250 2450 Output Total 1200 1065 Balance -950 1385 Intake: Oral (ml) 250 1550 IV Intake (ml) 0 900 Output: Urine (ml) 1200 1050 Toilet 1200 1050 Estimated Blood Loss (ml) 15 Other: Weight 64.41 kg 62.7 kg 62.7 kg Number of Voids Toilet 1 2 Result Diagrams: 10/30/18 03:35 10/30/18 03:35 Telemetry: Atrial fibrillation with ventricular rates between 80-110 beats per minute ICD10 Worksheet Patient Problems: Problems Problem Status Onset Atrial fibrillation Acute
--- NOTE | 2018-10-31 10:57 | PDDCSUM ---
Discharge Summary Discharge Summary: DISCHARGE DIAGNOSES: * rapid atrial fibrillation with history of paroxysmal AFib * poorly differentiated carcinoma CONSULTANTS: Dr. Lyndon Hunter PROCEDURES: Placement of subclavian IV port for chemotherapy HOSPITAL COURSE SUMMARY: This patient was to have placement of a port to begin chemotherapy but when she showed up for the chemotherapy she was in rapid atrial fibrillation. She was admitted for management of the rapid atrial fibrillation. We do have better rate control of her AFib at this time with increase in metoprolol to a total of 75 mg daily with short-acting doses. Her port has now been safely placed. Her anticoagulation had been held prior to admission for the port placement, and we are resuming at this time with Eliquis. The patient is stable for discharge. She will follow up with Dr. Pinedo in Oncology Clinic in 2 days and begin her chemotherapy regimen at that time. She has an appointment to follow up in the Cardiology Clinic as well. PENDING TEST RESULTS: None MEDICATION CHANGES: Changed from metoprolol XL 50 mg daily to short-acting metoprolol 25 mg three times daily FOLLOW-UP PLAN: With Dr. Pinedo in clinic this week to begin chemotherapy Greater than 35 minutes bedside and care coordination time today
--- NOTE | 2018-10-31 11:01 | SOAPPROG ---
SOAP Progress Note Assessment/Plan: Assessment: 78 y/o F with metastatic CA, unknown primary. Was supposed to undergo port placement yesterday, but upon arrival to preop, she was noted to be in A-fib. Scheduled to start chemo on Friday. Metoprolol tartrate tid per cardiology. Still with rapid rate this am. Restart Eliquis tomorrow, November 02. Leukocytosis. Possibly due to recent steroids? Pt being worked up for possible infectious source. S: Eager to be discharged. Pain controlled. O: Alert irregularly irregular rate ctab, no increased Wob Abdomen soft, nontender Plan: Do not restart Eliquis until tomorrow. Dispo home today. 10/31/18 11:00 Objective: Vital Signs Temp Pulse Resp BP Pulse Ox 36.6 C 104 H 18 128/77 H 99 10/31/18 07:36 10/31/18 08:15 10/31/18 07:36 10/31/18 08:14 10/31/18 07:36 Laboratory Results 10/30/18 03:35 10/30/18 10/31/18 11/01/18 05:59 05:59 05:59 Intake Total 250 2450 Output Total 500 1765 Balance -250 685 ICD10 Worksheet Patient Problems: Problems Problem Status Onset Atrial fibrillation Acute - ICD10 Problem Qualifiers (1) Atrial fibrillation
[2018-10-31 11:11] VITALS: BP 101/47
--- NOTE | 2018-10-31 14:30 | ASMTLACE ---
LACE Length of stay for Answers: 2 days current admission Acuity / Level of Answers: Yes Care: Did the patient have an inpatient admission? Comorbidities - select Answers: Opioid dependence all that apply / Chronic pain Other Notes: AFib; HTN # of Emergency department Answers: 0 visits in the last 6 months Score: 10 Date Signed: 10/31/2018 02:29 PM Electronically Signed By:Maxine Alvarez RN
--- NOTE | 2018-10-31 14:32 | ASMTDCNOTE ---
Case Management Discharge Discharge Order Complete? Answers: Yes Patient to Obtain Answers: Independently Medications Transportation Arranged Answers: Family/Friends Family Notified Answers: Yes Date Signed: 10/31/2018 02:31 PM Electronically Signed By:Maxine Alvarez RN
[2018-11-01] MEDS ORDERED: ESTRADIOL VIVELLE 0.05 MG PATCH TD SCH (09:00)
--- NOTE | 2018-11-01 14:31 | CPEKG ---
Test Reason : OPEN Blood Pressure : / mmHG Vent. Rate : 096 BPM Atrial Rate : 385 BPM P-R Int : 051 ms QRS Dur : 080 ms QT Int : 340 ms P-R-T Axes : 102 053 019 degrees QTc Int : 430 ms Atrial fibrillation Low voltage, extremity and precordial leads Confirmed by Endy Parker ([id number]) on 11/01/2018 2:31:16 PM Referred By: Confirmed By:Endy Parker
--- NOTE | 2018-11-02 15:38 | GOP ---
DATE OF OPERATION: 10/30/2018 SURGEON: Lyndon Hunter MD PREOPERATIVE DIAGNOSIS: Metastatic cancer. POSTOPERATIVE DIAGNOSIS: Metastatic cancer. PROCEDURE PERFORMED: Port placement with fluoroscopic guidance. FINDINGS: I could not thread the catheter through the subclavian vein and it was eventually placed i n the internal jugular vein with ultrasound guidance. ESTIMATED BLOOD LOSS: Negligible. DESCRIPTION OF PROCEDURE: The patient was taken to the operating room where she received IV sedation and monitored anesthesia care by Dr. Guzman. She was placed in supine position, prepped and draped in usual sterile fashion, then placed in Trendelenburg. Several sticks were made in the right subcla vian vein. The guide wire would not pass successfully for some reason. At least 1 of the sticks appe ared to be possibly arterial. That approach was discontinued. The internal jugular vein was visuali zed with ultrasound in the low neck and a direct stick was made into the vein. Guidewire was introdu ingrid and passed into the right atrium. A subcu pocket was made in the 2nd intercostal space using 0.5 % Marcaine local infiltration. Port tubing was passed from that pocket over the clavicle to the inse rtion site in the jugular vein. It was then introduced into the right atrium via the introducer grimm th and dilator system after it was measured with fluoroscopy. Good backflow was achieved. The charmaine ter was flushed with heparin saline. The port was secured to the fascia with 3-0 Vicryl. Pocket was closed with 3-0 Vicryl for the subcu and 4-0 Prolene subcuticular stitch for the skin. The entrance site was also closed with Prolene mattress sutures. She tolerated the procedure well. She was take n to the recovery room in good condition. There were no complications. /[id number]/MODL
[2018-11-25] MEDS ORDERED: CYANO/VITAMIN B12 1000 MCG/ML VIAL IM SCH (09:00)
== END 2018-10-31 14:55 | disposition home or self-care (01) | DRG 309 ==
LOC: FSGY 11:03 → F2W 12:33
PROVIDERS: ADMIT Internal Medicine; ATTEND Internal Medicine
PROC: 02H633Z Insertion of Infusion Device into Right Atrium, Percutaneous Approach (ICD-10-PCS; principal; 2018-10-30 11:30)
PROC: 0JH60XZ Insertion of Tunneled Vascular Access Device into Chest Subcutaneous Tissue and Fascia, Open Approach (ICD-10-PCS; principal; 2018-10-30 11:30)
DX: I48.91 Unspecified atrial fibrillation (principal); C78.6 Secondary malignant neoplasm of retroperitoneum and peritoneum; I10 Essential (primary) hypertension; Z23 Encounter for immunization; G43.009 Migraine without aura, not intractable, without status migrainosus
CPT/HCPCS: 86301-90; C1788; J1160; J1642; J2704; J3010; J3370; J3420